=== PATIENT | male | born 1950 | race Caucasian/White ===

== ENCOUNTER → 2024-06-24 13:25 | Outpatient (REF) | payer MEDICARE, OTHER, SELFPAY | LOC: RAD 13:25 | PROVIDERS: ATTENDING PHYSICIAN Nurse Practitioner Adult Health | DX: R42 Dizziness and giddiness (principal); R09.89 Other specified symptoms and signs involving the circulatory and respiratory systems | CPT/HCPCS: 93880 ==

== ENCOUNTER → 2024-08-13 14:22 | Outpatient (REF) | payer MEDICARE, OTHER, SELFPAY | LOC: CLAB 14:22 | PROVIDERS: ATTENDING PHYSICIAN Specialist | DX: R97.20 Elevated prostate specific antigen [PSA] (principal) | CPT/HCPCS: 88305 ==

== ENCOUNTER → 2024-08-29 08:29 | Outpatient (REF) | payer MEDICARE, OTHER, SELFPAY | LOC: EMG 08:29 | PROVIDERS: ATTENDING PHYSICIAN Podiatrist Foot & Ankle Surgery; FAMILY PHYSICIAN Nurse Practitioner Adult Health | DX: M62.81 Muscle weakness (generalized) (principal); R20.0 Anesthesia of skin | CPT/HCPCS: 95886; 95911 ==